=== PATIENT | female | born 1945 | race Caucasian/White ===

== ENCOUNTER → 2016-08-24 | Outpatient (CLI) | payer MEDICARE, BC ==
[2016-08-24 11:51] LABS: Blood Urea Nitrogen 14 mg/dL (7-17); Non-African American GFR(MDRD) >60 (>60 ml/min/1.73 sqM)
--- NOTE | 2016-08-24 12:33 | CT ---
EXAMINATION TYPE: CT ChestAbdPelvis w con DATE OF EXAM: 08/24/2016 COMPARISON: NONE HISTORY: Follow up to ovarian CA CT DLP: 1371.7 mGycm CONTRAST: CT scan of the chest, abdomen and pelvis is performed with Oral Contrast and with IV Contrast, patien t injected with 100 mL of O[address] 300. CT Chest: LUNGS: The lungs are clear and free of infiltrate or atelectasis. Calcified granuloma right lower lob e. No evidence for suspicious pulmonary nodule or mass. Postinflammatory changes within the lingula a nd right middle lobe. No pleural effusion or CT evidence of interstitial lung disease. MEDIASTINUM: Thoracic aorta is of normal caliber. The heart is not enlarged. No evidence for media stinal mass or adenopathy. HILAR STRUCTURES: No evidence for mass. No hilar adenopathy is appreciated. OTHER: No significant abnormality. CONTRAST CT ABDOMEN AND PELVIS FINDINGS: LIVER/GB: No calcified gallstones. Stable dome of the liver lesion measuring 1.8 cm versus 1.9 cm p reviously. Mild hepatic steatosis. Biliary tree is of normal caliber. PANCREAS: No inflammation. No distinct mass. SPLEEN: No splenic enlargement. No lesion seen. ADRENALS: No nodule. No thickening. KIDNEYS/BLADDER: Extrarenal pelves noted bilaterally. No hydronephrosis. No nephrolithiasis. No di sctinct renal mass. BOWEL: Normal appendix. Normal bowel caliber. No inflammation. Colonic diverticulosis without diver ticulitis. Small fixed hiatal hernia. GENITAL ORGANS: Hysterectomy changes. Ovaries are surgically removed as well. No evidence for adnexal mass or pelvic sidewall mass. LYMPH NODES: No greater than 1cm abdominal or pelvic lymph nodes are appreciated. AORTA: No significant abnormality. OSSEOUS STRUCTURES: No significant abnormality is seen. OTHER: No significant additional abnormality is seen. IMPRESSION: 1. Stable appearance of the chest abdomen and pelvis. 2. Stable lesion dome of the liver. 3 stable remote granulomatous disease and postinflammatory changes of the lungs. 4. Sigmoid diverticulosis without diverticulitis
== END | disposition home or self-care (01) ==
LOC: RADCTMAIN 11:11
PROVIDERS: ATTEND Internal Medicine Hematology & Oncology
DX: C56.9 Malignant neoplasm of unspecified ovary (principal); K76.9 Liver disease, unspecified; K57.30 Diverticulosis of large intestine without perforation or abscess without bleeding; D71 Functional disorders of polymorphonuclear neutrophils; J98.4 Other disorders of lung
CPT/HCPCS: 82565; 84520; 71260; 74177; 36415; Q9967

== ENCOUNTER → 2017-06-17 | Outpatient (CLI) | payer MEDICARE, BC ==
[2017-06-17 13:30] LABS: Blood Urea Nitrogen 15 mg/dL (7-17)
--- NOTE | 2017-06-17 15:17 | CT ---
EXAMINATION TYPE: CT ChestAbdPelvis w con DATE OF EXAM: 06/17/2017 COMPARISON: 08/24/2016, 12/18/2015 and 05/26/2015 HISTORY: FOLLOW UP OVARIAN CA CT DLP: 1531 mGycm. Automated Exposure Control for Dose Reduction was Utilized. CONTRAST: CT scan of the thorax, abdomen and pelvis is performed with IV Contrast, patient injected with 100 mL of Isovue 300. FINDINGS: LUNGS: There is a 3 mm right apical pulmonary nodule anteriorly on series 4 image 13, unchanged from the exam of 12/18/2015 and 08/26/2014 and therefore this is favored to be benign. Reticular nodular op acity within the right peripheral middle lobe extending from series 4 image 34 image 36 is also simil ar to the prior exam of 08/26/1714 with the largest nodule demonstrating no increase in size at 5 mm. This is present on series 4 image 36. There is redemonstration of a calcified granuloma within the r ight lower lobe, benign. There is no pleural effusion or pneumothorax seen. The tracheobronchial t ree is patent. MEDIASTINUM: There are no greater than 1 cm hilar or mediastinal lymph nodes. No pericardial effusi on is seen. OTHER: There is a small hiatal hernia noted. LIVER/GB: The approximately 2.0 x 1.9 cm right hepatic dome lesion is unchanged dating back to 2015 and appears slightly smaller in size in the exam of 08/26/1714, possibly representing slice selec tion. No new focal liver lesion is seen. No intrahepatic biliary ductal dilatation. No cholelithiasi s. PANCREAS: No significant abnormality is seen. SPLEEN: No significant abnormality is seen. ADRENALS: There is unchanged thickening in the left adrenal gland from 08/26/1714, favored to represen t benign adrenal gland hyperplasia. Right adrenal gland is unremarkable. KIDNEYS: There is redemonstration of bilateral extrarenal pelvises sees. Kidneys enhance symmetricall y. BOWEL: Numerous colonic diverticula are present without pericolonic fat stranding. No dilated bowel. GENITAL ORGANS: No gross abnormality seen. LYMPH NODES: No greater than 1cm abdominal or pelvic lymph nodes are appreciated. OSSEOUS STRUCTURES: Very slight grade 1 anterolisthesis is seen at L4-L5. Minimal degenerative change s of the visualized thoracolumbar spine are noted. No new suspicious osseous lesions. IMPRESSION: 1. Stable right-sided pulmonary nodules dating back to 2014. Given the calcified right basilar benig n granuloma these additional nodules are also favored to represent benign granulomatous changes. 2. No new adenopathy within the chest, abdomen, or pelvis. 3. Stable solitary right hepatic lesion from the prior of 08/24/2016 measuring approximately 2 cm. No new hepatic lesion. 4. Unchanged findings favoring left adrenal gland hyperplasia dating back to 2014.
== END | disposition home or self-care (01) ==
LOC: RADCTMAIN 12:29
PROVIDERS: ATTEND Internal Medicine Hematology & Oncology
DX: C56.9 Malignant neoplasm of unspecified ovary (principal); R91.8 Other nonspecific abnormal finding of lung field; J84.10 Pulmonary fibrosis, unspecified
CPT/HCPCS: 82565; 84520; 71260; 74177; 36415; Q9967

== ENCOUNTER → 2018-06-12 | Outpatient (CLI) | payer MEDICARE, BC ==
[2018-06-12 11:14] LABS: Blood Urea Nitrogen 15 mg/dL (7-17)
--- NOTE | 2018-06-12 13:41 | CT ---
EXAMINATION TYPE: CT ChestAbdPelvis w con DATE OF EXAM: 06/12/2018 COMPARISON: CT chest abdomen and pelvis June 17, 2017 and older CTs back to May 27, 2014 HISTORY: Follow up ovarian ca CT DLP: 1000.2 mGycm. Automated Exposure Control for Dose Reduction was Utilized. CONTRAST: CT scan of the thorax, abdomen and pelvis is performed with IV Contrast, patient injected with 100 mL of Isovue 300. FINDINGS: LUNGS: There is stable 8 mm calcified nodule or granuloma medial right lung base image 43. Stable sca rlike opacity anterior right lung base axial image 37. No new suspicious noncalcified nodules or mass es are present bilaterally. No pleural effusion or pneumothorax is seen bilaterally. Tracheobronchial tree is patent. MEDIASTINUM: There are no greater than 1 cm hilar or mediastinal lymph nodes. No cardiomegaly or pe ricardial effusion is seen. Coronary artery calcification is seen which is noted marker for underlyi ng coronary artery disease. Somewhat small size thyroid gland is redemonstrated. Small sized hiatal h ernia is again seen. OTHER: No additional significant abnormality is seen. LIVER/GB: Stable roughly 1.7 cm right hepatic dome slight hypodense lesion axial image 44. PANCREAS: No significant abnormality is seen. SPLEEN: No significant abnormality is seen. ADRENALS: Low-density think the left adrenal gland favors benign hyperplasia unchanged from prior sejal dies. KIDNEYS: Symmetric cortical medullary uptake and excretion is redemonstrated. Prominent bilateral kareen al pelvises consistent with extrarenal pelvises is redemonstrated. BOWEL: Small-sized hiatal hernia is redemonstrated. Oral contrast extends into the rectum. Diverticul a in the left and sigmoid colon are present. There is no CT evidence for acute diverticulitis. GENITAL ORGANS: Uterus is surgically absent . LYMPH NODES: No greater than 1cm abdominal or pelvic lymph nodes are appreciated. OSSEOUS STRUCTURES: Mild multilevel spurring. Facet arthropathy lower lumbar spine is redemonstrated. OTHER: Mild calcified plaque of the aorta extends into branch vessels. IMPRESSION: No suspicious new mass or adenopathy to suggest neoplastic recurrence. Overall stable fi ndings from prior CTs.
== END ==
LOC: RADCTMAIN 10:35
PROVIDERS: ATTEND Internal Medicine Hematology & Oncology
DX: Z03.89 Encounter for observation for other suspected diseases and conditions ruled out (principal)
CPT/HCPCS: 82565; 84520; 71260; 74177; 36415; Q9967 ×2

== ENCOUNTER → 2018-06-29 | Outpatient (CLI) | payer MEDICARE, BC ==
--- NOTE | 2018-06-29 14:44 | BD ---
EXAMINATION TYPE: Axial Bone Density DATE OF EXAM: 06/29/2018 COMPARISON: NONE CLINICAL HISTORY: Postmenopausal female. Osteoporosis screening. Height: 61.25 Weight: 180 FRAX RISK QUESTIONS: Alcohol (3 or more units per day): no Family History (Parent hip fracture): no Glucocorticoids (More than 3mos): no (Ex: prednisone, prednisolone, methylprednisolone, dexamethasone, and hydrocortisone). History of Fracture in Adulthood: yes, right foot in AA Secondary Osteoporosis: 1. Type 1 Diabetes: no 2. Hyperthyroidism: no 3. Menopause before 45: no 4. Malnutrition: no 5. Chronic liver disease: no Rheumatoid Arthritis: no Current Tobacco Use: no RISK FACTORS HISTORY OF: Family History of Osteoporosis: not that patient is aware of Active: yes Diet low in dairy products/other sources of calcium: no Postmenopausal woman: no Take estrogen and/or progesterone medications: not now How long: for a few years; unsure how long Lost more than 2 inches in height since high school: no Frequent falls: no Poor Health: no Hyperparathyroidism: no Adrenal Insufficiency: no MEDICATIONS: Prednisone or other steroids: no Thyroid Medications: yes Which medication: Synthroid How Long: since about 1972 Osteoporosis Medications: no Additional Medications: blood pressure meds, cholesterol med, Vitamin D3 ; Anastrozole Additional History: Ovarian CA nearly 5 years ago/chemo EXAM MEASUREMENTS: Bone mineral densitometry was performed using the [employer] System. Bone mineral density as measured about the Lumbar spine is: ----- L1-L4(G/cm2): 1.085 T Score Values are as follows: ----- L2: -1.8 ----- L3: 0.5 ----- L4: -0.7 ----- L1-L4: -0.8 Bone mineral density not previously done at this facility; done previously in a physician's office Bone mineral density about the R hip (g/cm2): 0.926 Bone mineral density about the L hip (g/cm2): 0.907 T Score values are as follows: -----R Neck: -0.8 -----L Neck: -0.9 -----R Total: 0.1 -----L Total: -0.4 Bone mineral density not previously done at this facility; done previously in a physician's office IMPRESSION: Osteopenia (T Score between -2.5 and -1). There is slightly increased risk of fracture and the patient may be considered for treatment. Re-Screen 2-5 years. NOTE: T-SCORE=SD OF THE YOUNG ADULT MEAN.
== END | disposition home or self-care (01) ==
LOC: RADBDWWP 12:58
PROVIDERS: ATTEND Internal Medicine Hematology & Oncology
DX: M85.88 Other specified disorders of bone density and structure, other site (principal); C56.1 Malignant neoplasm of right ovary; N95.1 Menopausal and female climacteric states; Z79.890 Hormone replacement therapy
CPT/HCPCS: 77080

== ENCOUNTER → 2019-06-18 | Outpatient (CLI) | payer MEDICARE, BC ==
[2019-06-18 13:00] LABS: African American GFR (CKD) >90 (>60 ml/min/1.73 sqM); Blood Urea Nitrogen 15 mg/dL (7-17); Non-African American GFR(CKD) 82 (>60 ml/min/1.73 sqM)
--- NOTE | 2019-06-18 18:47 | CT ---
EXAMINATION TYPE: CT ChestAbdPelvis w con DATE OF EXAM: 06/18/2019 COMPARISON: Prior CT June 12, 2018 and older CTs HISTORY: [address] DLP: 1728 mGycm. Automated Exposure Control for Dose Reduction was Utilized. CONTRAST: CT scan of the thorax, abdomen and pelvis is performed with oral and with IV Contrast, patient inject ed with 100 ml mL of Isovue 300. FINDINGS: LUNGS: Redemonstration 8 mm calcified nodule or granuloma medial right lung base axial image 39. No n ew greater than 5 mm noncalcified pulmonary nodules or masses present bilaterally. Mild linear scarri ng anteriorly in the lung bases redemonstrated. No pleural effusion or pneumothorax seen bilaterally. MEDIASTINUM: There are no greater than 1 cm hilar or mediastinal lymph nodes. No cardiomegaly or pe ricardial effusion is seen. Stable somewhat small size thyroid gland. LIVER/GB: Stable roughly 1.5 cm posterior right hepatic dome lesion axial image 43 unchanged from katie or studies1. PANCREAS: No significant abnormality is seen. SPLEEN: No significant abnormality is seen. ADRENALS: Slight asymmetric thickening to left adrenal gland stable presumed benign. KIDNEYS: Persistent symmetric cortical medullary uptake and excretion with prominent extrarenal pelvi ses that do not show significant calyceal dilatation consistent with extrarenal pelvises are redemons trated. BOWEL: Stable small sized hiatal hernia. Oral contrast reaches level of right colon making evaluation of distal bowel somewhat suboptimal. No suspicious small or large bowel dilatation. Diverticula thro ughout the left and sigmoid colon are redemonstrated. No CT evidence for acute diverticulitis. GENITAL ORGANS: Uterus surgically absent. No new suspicious adnexal masses. Both ovaries presumed robert gically absent. LYMPH NODES: No greater than 1cm abdominal or pelvic lymph nodes are appreciated. OSSEOUS STRUCTURES: Moderate axial joint space loss in both hips. Facet arthropathy lower lumbar leve ls. Slight scoliotic curvature. OTHER: Mild calcified plaque of the aorta extends into branch vessels. IMPRESSION: No new suspicious mass or adenopathy to suggest neoplastic recurrence. No significant ch jeovany from prior CTs.
== END | disposition home or self-care (01) ==
LOC: RADCTMAIN 12:09
PROVIDERS: ATTEND Internal Medicine Hematology & Oncology
DX: C56.9 Malignant neoplasm of unspecified ovary (principal)
CPT/HCPCS: 86304; 82565; 84520; 71260; 74177; Q9967

== ENCOUNTER → 2020-06-09 | Outpatient (CLI) | payer MEDICARE, BC ==
--- NOTE | 2020-06-09 11:51 | BD ---
EXAMINATION TYPE: Axial Bone Density DATE OF EXAM: 06/09/2020 COMPARISON: 06/29/2018 CLINICAL HISTORY: Height: 61 IN Weight: 174 LBS RISK FACTORS HISTORY OF: Active: YES Diet low in dairy products/other sources of calcium: YES Postmenopausal woman: TOTAL HYST AGE 62 MEDICATIONS: Thyroid Medications: YES Which medication: Levothyroxine How Lon+ YEARS Additional Medications: LEVOTHYROXINE, VIT D, ANASTROZOLE, CARVEDILOL,OMEPRAZOLE, AMLODIPINE, ZINC, A LEVE Additional History: OVARIAN CANCER WITH CHEMO; RADIATION FOR THYROID IN THE EXAM MEASUREMENTS: Bone mineral densitometry was performed using the [employer] System. Bone mineral density as measured about the Lumbar spine is: ----- L1-L4(G/cm2): 1.035 T Score Values are as follows: ----- L2: -2.2 ----- L3: 0.0 ----- L4: -1.1 ----- L1-L4: -1.2 Bone mineral density has: Decreased -4.5% since study of: 06/29/2018 Bone mineral density about the R hip (g/cm2): 0.886 Bone mineral density about the L hip (g/cm2): 0.873 T Score values are as follows: -----R Neck: -1.1 -----L Neck: -1.2 -----R Total: -0.8 -----L Total: -0.6 Bone mineral density has: Decreased -7.3% since study of: 06/29/2018 IMPRESSION: Osteopenia (T Score between -2.5 and -1). There is slightly increased risk of fracture and the patient may be considered for treatment. Re-Screen 2-5 years. NOTE: T-SCORE=SD OF THE YOUNG ADULT MEAN.
== END | disposition home or self-care (01) ==
LOC: RADBDWWP 09:43
PROVIDERS: ATTEND Internal Medicine Hematology & Oncology
DX: M85.80 Other specified disorders of bone density and structure, unspecified site (principal)
CPT/HCPCS: 77080

== ENCOUNTER → 2020-06-10 | Outpatient (CLI) | payer MEDICARE, BC ==
[2020-06-10 12:53] LABS: African American GFR (CKD) >90 (>60 ml/min/1.73 sqM); Blood Urea Nitrogen 17 mg/dL (7-17); Non-African American GFR(CKD) 88 (>60 ml/min/1.73 sqM)
--- NOTE | 2020-06-10 13:50 | CT ---
EXAMINATION TYPE: CT ChestAbdPelvis w con DATE OF EXAM: 06/10/2020 COMPARISON: 06/18/2019 HISTORY: Follow up for ovarian cancer. CT DLP: 1228.5 mGycm CONTRAST: CT scan of the chest, abdomen and pelvis is performed with Oral Contrast and with IV Contrast, patien t injected with 100ml mL of Isovue 300. CT Chest: LUNGS: Increasing reticulonodular densities right upper lobe. Calcified granuloma right lower lobe is stable. Linear atelectasis or parenchymal scarring in the regions of the right middle lobe and lingu la bilaterally. No pulmonary nodule or mass is detected. No pleural effusion or CT evidence of inter stitial lung disease. MEDIASTINUM: Thoracic aorta is of normal caliber. The heart is not enlarged. No evidence for media stinal mass or adenopathy. Small hiatal hernia noted. HILAR STRUCTURES: No evidence for mass. No hilar adenopathy is appreciated. OTHER: No significant abnormality. CONTRAST CT ABDOMEN AND PELVIS FINDINGS: LIVER/GB: Mild hepatic steatosis. No calcified gallstones. No space occupying hepatic lesion. Bili maylin tree is of normal caliber. PANCREAS: No inflammation. No distinct mass. SPLEEN: No splenic enlargement. No lesion seen. ADRENALS: No nodule. No thickening. KIDNEYS/BLADDER: Extrarenal pelves are seen bilaterally. No hydronephrosis. No nephrolithiasis. No distinct renal mass. BOWEL: Normal appendix. Normal bowel caliber. No inflammation. Diverticulosis without diverticuliti s. GENITAL ORGANS: Hysterectomy changes as well as bilateral oophorectomy. No evidence for recurrent or residual mass. LYMPH NODES: No greater than 1cm abdominal or pelvic lymph nodes are appreciated. AORTA: No significant abnormality. OSSEOUS STRUCTURES: No significant abnormality is seen. OTHER: No significant additional abnormality is seen. IMPRESSION: 1. Increased right upper lobe reticulonodular process may reflect chronic inflammatory process. Metas tatic disease is felt to be less likely. 2. No evidence for metastatic disease to the abdomen or pelvis. No evidence for tumor recurrence.
== END | disposition home or self-care (01) ==
LOC: RADCTMAIN 11:01
PROVIDERS: ATTEND Internal Medicine Hematology & Oncology
DX: C56.9 Malignant neoplasm of unspecified ovary (principal); R91.8 Other nonspecific abnormal finding of lung field
CPT/HCPCS: 86304; 82565; 84520; 71260; 74177; 36415; Q9967